=== PATIENT | male | born 1955 | race Caucasian/White ===

== ENCOUNTER 2021-03-31 08:25 | Outpatient (CLI) | payer BC, SELFPAY | END 2021-03-31 08:26 | disposition home or self-care (01) | LOC: CHSCOVIDVC 08:25 | PROVIDERS: PCP Internal Medicine | DX: Z23 Encounter for immunization (principal) | CPT/HCPCS: 0011A; 91301 ==

== ENCOUNTER 2021-04-28 08:23 | Outpatient (CLI) | payer BC, SELFPAY | END 2021-04-28 08:24 | disposition home or self-care (01) | LOC: CHSCOVIDVC 08:24 | PROVIDERS: PCP Internal Medicine | DX: Z23 Encounter for immunization (principal) | CPT/HCPCS: 0012A; 91301 ==

== ENCOUNTER 2023-04-29 10:29 | Outpatient (CLI) | payer MEDICARE, BC, SELFPAY ==
--- NOTE | ~2023-04-29 | CT_ITS ---
CT of the Abdomen: Indication: Abnormal liver enzymes Technique: 2.5 mm axial scans were obtained through the abdomen following intravenous administration of 100 cc of Omnipaque 350. Dose reduction technique was used on this scan by utilizing automated ex posure control and iterative reconstruction technique. The dose-length product (DLP) was 976.48 mGy-c m. COMPARISON: 12/12/2014 Findings: Scans through the lung bases are unremarkable. Diffuse fatty infiltration of the liver is noted. The spleen, pancreas, gallbladder, right adrenal gl and, and kidneys are within normal limits. Stable left adrenal nodule. There are atherosclerotic calc ifications of the aorta. No lymphadenopathy. Visualized bowel is unremarkable. No ascites. Impression: Diffuse fatty infiltration of liver. Stable left adrenal nodule. Reviewed, dictated and finalized at location M. Impression: Diffuse fatty infiltration of liver. Stable left adrenal nodule.
[2023-04-29 11:05] LABS: Estimated Glomerular Filt Rate > 60
== END 2023-04-29 10:30 | disposition home or self-care (01) ==
LOC: CHSIMG 10:34
PROVIDERS: PCP Internal Medicine; Visit Provider Internal Medicine
DX: R74.01 Elevation of levels of liver transaminase levels (principal); K76.0 Fatty (change of) liver, not elsewhere classified; E27.9 Disorder of adrenal gland, unspecified
CPT/HCPCS: 74160; Q9967

== ENCOUNTER 2025-10-25 14:14 | Outpatient (CLI) | payer MEDICARE, BC, SELFPAY ==
--- NOTE | ~2025-10-25 | XR_ITS ---
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 Moderate loss of disc height L3-4 with mild loss of the remaining disc heights Soft tissues unremarkable Impression: No acute abnormality. Reviewed, dictated and finalized at location P. EQUIPMENT MECHANIC Impression: No acute abnormality.
--- NOTE | ~2025-10-25 | XR_ITS ---
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 Findings: No acute fracture or malalignment. Mild sclerosis of the sacroiliac joints, no erosions or bridging osteophyte formation Soft tissues unremarkable. Impression: No acute fracture or malalignment. Reviewed, dictated and finalized at location P. ORKING TECHNICIAN Impression: No acute fracture or malalignment.
--- OUTSIDE RECORDS SUMMARY | 2025-10-25 16:09 | XMS_ITS | Clinical Summary ---
Author Organization [facility] Address [address] [place] [id number] Care Team Providers Care Tray Delivery Aide Name Role Phone Unavailable Primary Care Provider Unavailabl e Social History Tobacco Use Types Packs/Day Years Used Date Smoking Tobacco: Never Assessed Sex and Gender Information Value Date Recorded Sex Assigned at Not on file Legal Sex Male 6:40 PM CDT Gender Identity Not on file Sexual Orientation Not on file Plan of Treatment Health Maintenance Due Date Last Done Comments Colorectal Cancer Screening Colonoscopy (10 Years) 1957 Hepatitis C 1975 DTaP, Tdap and Td Vaccines ( 1 - Tdap) 1976 Pneumococcal Vaccine: 50+ Ye ars (1 of 1 - PCV) 2007 Zoster Vaccines (1 of 2) 2007 COVID-19 Vaccine (1 - 2024-2 6 season) 2025 Influenza Adult (#1) 2025 RSV Immunization or 60+ Years (1 - 1-dose 75+ series) 2032 Hepatitis A Vaccines Aged Out No long er eligible based on patient's age to complete this topic Meningococcal B Vaccine Aged Out No l onger eligible based on patient's age to complete this topic Meningococcal Vaccine Aged Out No [place] eligible based on patient's age to complete this topic RSV Immunizations Under 20 Months Aged Out No longer eligible based on patient's age to complete this topic
== END 2025-10-25 14:15 | disposition home or self-care (01) ==
LOC: CHSIMG 14:17
PROVIDERS: PCP Internal Medicine; Visit Provider Internal Medicine
DX: M54.50 Low back pain, unspecified (principal)
CPT/HCPCS: 72100; 72202

== ENCOUNTER 2025-11-26 07:49 | Outpatient (CLI) | payer MEDICARE, BC, SELFPAY | END 2025-11-26 07:50 | disposition home or self-care (01) | PROVIDERS: PCP Internal Medicine; Visit Provider Internal Medicine | DX: M54.50 Low back pain, unspecified (principal) | CPT/HCPCS: 99199 ==